=== PATIENT | female | born 1990 | race Caucasian/White ===

== ENCOUNTER 2016-07-22 09:20 | Outpatient (CLI) | payer OTHER | END 2016-07-22 09:21 | disposition home or self-care (01) | DX: Z36 Encounter for antenatal screening of mother (principal) ==

== ENCOUNTER 2016-08-03 | Outpatient (CLI) | payer OTHER | END 2016-08-03 10:45 | disposition home or self-care (01) | DX: Z03.71 Encounter for suspected problem with amniotic cavity and membrane ruled out (principal) | CPT/HCPCS: 96366; 96372; 99214 ==

== ENCOUNTER 2016-08-04 21:50 | Inpatient (IN) | payer OTHER ==
[2016-08-04] MEDS ORDERED: SODIUM CHLORIDE FLUSH 0.9% 10 ML SYRINGE IVP ONE ×2 (22:33→22:53)
[2016-08-04] MEDS ORDERED: fentaNYL 100 MCG/2 ML VIAL ONE (22:52)
[2016-08-04] MEDS ORDERED: fentaNYL 100 MCG/2 ML VIAL IVP PRN (23:09)
[2016-08-04] MEDS ORDERED: PENICILLIN G POTASSIUM 5,000,000 UNIT in SODIUM CHLORIDE 0.9% MINIBAG 100 ML IV ONE (23:09)
[2016-08-04] MEDS ORDERED: ROPIVACAINE 0.2% PF 10 ML VIAL EPI ONE (23:33)
[2016-08-04] MEDS ORDERED: LIDOCAINE MPF 2%-EPI 1:200000 20 ML VIAL SUBQ ONE (23:33)
[2016-08-04] MEDS ORDERED: SUFENTA/BUPIV 0.4 MCG/0.0625% 150 ML EP ONE (23:49)
[2016-08-05] MEDS ORDERED: OXYTOCIN/LACTATED RINGERS 250 ML IV ONE (00:06)
[2016-08-05] MEDS ORDERED: ePHEDrine 50 MG/ML AMP IVP PRN (01:54)
[2016-08-05] MEDS ORDERED: ONDANSETRON 4 MG/2 ML VIAL IVP PRN ×2 (01:54→03:11)
[2016-08-05] MEDS ORDERED: METOCLOPRAMIDE 10 MG/2 ML VIAL IVP PRN (01:54)
[2016-08-05] MEDS ORDERED: diphenhydrAMINE INJ 50 MG/ML VIAL IVP PRN (01:54)
[2016-08-05] MEDS ORDERED: NALOXONE 0.4 MG/ML VIAL IVP PRN (01:54)
[2016-08-05] MEDS ORDERED: SUFENTA/BUPIV 0.4 MCG/0.0625% EPIDURAL 150 ML EP PRN (01:54)
[2016-08-05] MEDS ORDERED: LACTATED RINGERS 500 ML IV SCH (01:54)
[2016-08-05] MEDS ORDERED: NALBUPHINE 20 MG/ML AMP IVP PRN (01:54)
[2016-08-05] MEDS: LACTATED RINGERS 1,000 ML IV SCH ×2 (02:06→16:10)
[2016-08-05] MEDS ORDERED: LIDOCAINE 1% 50 ML MDV ONE (02:23)
[2016-08-05] MEDS ORDERED: ACETAMINOPHEN 325 MG TABLET PO PRN (03:07)
[2016-08-05] MEDS ORDERED: HYDROCORTISONE/PRAMOXINE 10 GM PR PRN (03:07)
[2016-08-05] MEDS ORDERED: WITCH HAZEL/GLYCERIN 1 EACH MED..PAD TOP PRN (03:07)
[2016-08-05] MEDS ORDERED: diphenhydrAMINE 25 MG CAPSULE PO PRN (03:07)
[2016-08-05] MEDS ORDERED: oxyCOD/ACETAMIN 5 MG/325 MG TABLET PO PRN (03:07)
[2016-08-05] MEDS: IBUPROFEN 800 MG TABLET PO SCH ×4 (05:12→22:59)
[2016-08-05] MEDS ORDERED: SODIUM CHLORIDE FLUSH 0.9% 10 ML SYRINGE IVP ONE (07:27)
[2016-08-05] MEDS: SIMETHICONE CHEW 80 MG TABLET PO SCH ×2 (08:18→13:05)
[2016-08-06] MEDS: IBUPROFEN 800 MG TABLET PO SCH ×4 (05:25→23:11)
[2016-08-06] MEDS: SIMETHICONE CHEW 80 MG TABLET PO SCH ×2 (08:43→16:38)
[2016-08-06] MEDS: LACTATED RINGERS 1,000 ML IV SCH ×2 (16:37→16:38)
[2016-08-07] MEDS: IBUPROFEN 800 MG TABLET PO SCH ×2 (05:09→11:20)
== END 2016-08-07 11:40 | disposition home or self-care (01) | DRG 775 ==
PROC: 10E0XZZ Delivery of Products of Conception, External Approach (ICD-10-PCS; principal; 2016-08-05)
PROC: 0KQM0ZZ Repair Perineum Muscle, Open Approach (ICD-10-PCS; principal; 2016-08-05)
DX: O99.824 Streptococcus B carrier state complicating childbirth (principal); Z3A.37 37 weeks gestation of pregnancy; Z37.0 Single live birth; O76 Abnormality in fetal heart rate and rhythm complicating labor and delivery; O70.1 Second degree perineal laceration during delivery